=== PATIENT | female | born 1945 | race Caucasian/White ===

== ENCOUNTER 2018-05-16 10:51 | Day surgery (SDC) | payer OTHER, MEDICARE, SELFPAY ==
--- NOTE | 2018-05-16 | PATH_ITS ---
[facility] Accession Number: [id number] . 01 Material submitted: . PART A: DUODENUM BX PART B: ANTRUM BX PART C: GE JUNCTION BX PART D: COLON POLYP BX AT 50 CM PART E: COLON POLYP AT 25 CM . 02 Diagnosis: A. Duodenum, Biopsy: Fragment of gastric oxyntic-type mucosa, consistent with gastric heterotopia. Negative for intraepithelial lymphocytosis. Negative for dysplasia and malignancy. . B. Stomach, Antrum, Biopsy: Superficial fragment of foveolar epithelium with no diagnostic abnormality. No evidence of Helicobacter on H/E stain. Negative for intestinal metaplasia. Negative for dysplasia or malignancy. . . C. Gastroesophageal Junction, Biopsy: Squamous and columnar epithelium with no diagnostic abnormality. Negative for intestinal metaplasia. Negative for dysplasia and malignancy. . D. Colon, Polyp at 50 cm, Biopsy: Tubular adenoma. . E. Colon, Polyp at 25 cm, Biopsy: Inflamed hyperplastic polyp. [facility]/05/17/2018 . 02 Electronically signed: . Yoanna Valdez MD, Pathologist NPI- [id number] . 01 Gross description: . Received five formalin-filled containers, each labeled with the patient's name: . A. In a container labeled duodenum, the specimen consists of a 0.2 cm portion of tissue, entirely submitted in cassette A. B. In a container labeled antrum, the specimen consists of two extremely tiny less than 0.1 cm portions of tissue, entirely submitted in cassette B. C. In a container labeled GE junction, the specimen consists of three fragments of tissue which range in size from less than 0.1 cm to 0.3 cm, entirely submitted in cassette C. D. In a container labeled colon polyp at 50 cm, the specimen consists of a 0.3 cm portion of tissue, entirely submitted in cassette D. E. In a container labeled colon polyp at 25 cm, the specimen consists of a 0.3 cm portion of tissue, entirely submitted in cassette E. ([id number]) /FRR . 02 Pathologist provided ICD-10: D12.6 . 02 CPT . 516220, [id number], 139265, [id number], [id number] Performed at: 01 [facility] [address] [address], [place], [place] [id number] MD Ender Vazquez MD Phone: [phone] Performed at: 02 [facility] [address] [place] [id number] MD Vinicius Greenfield MD Phone: [phone]
[2018-05-16 11:13] VITALS: BP 148/83; PULSE 70; RESP 16; TEMP 36.4; O2SAT 97
[2018-05-16] MEDS: SODIUM CHLORIDE 0.9% 1,000 ML 200 ML IV (11:20)
[2018-05-16] MEDS: TETRACAINE/BENZOCAINE/BUTAMBEN (CETACAINE) BOTTLE 1 SPRAY TOP (12:09)
[2018-05-16] MEDS: MIDAZOLAM 5 MG/5 ML VIAL IV (12:10)
[2018-05-16] MEDS: fentaNYL 250 MCG/5 ML INJ IV (12:10)
[2018-05-16] MEDS: LIDOCAINE 4% SOLN 50 ML 20 ML TOP (12:11)
--- NOTE | 2018-05-16 12:15 | PM.HP.1 ---
History of Present Illness Date Patient Seen: 05/16/18 Time Patient Seen: 12:16 Chief complaint: [id number] Narrative: Lo is a pleasant 72-year-old lady who is here for her 1st screening colonoscopy. Additionally she has significant noncardiac chest pain for many years has never had an EGD. Patient History Surgical History History of angioplasty History of tonsillectomy Family & Social History Family History: Reviewed 05/16/18 by Lauren Babin MD Social History: household members spouse Meds Home Medications Medication Instructions Recorded Confirmed Type amlodipine [Norvasc] 10 mg PO QDAY #30 tab 06/11/16 05/16/18 History benazepril 20 mg PO BID #0 08/16/16 05/16/18 History levothyroxine 0.05 mg PO QAM #90 tab 12/05/17 05/16/18 Rx Allergies Allergy/AdvReac Type Severity Reaction Status Date / Time No Known Drug Allergies Allergy Verified 05/16/18 11:02 Review of Systems Review of Systems All systems reviewed & are unremarkable except as noted in HPI and below Exam Vital Signs (past 8 hours): - 05/16/18 11:13 Temperature 97.6 F Pulse Rate 70 Respiratory Rate 16 Blood Pressure 148/83 H Pulse Oximetry 97 Oxygen Delivery Method Room Air Narrative Exam Narrative: Very pleasant, well-nourished, and well-developed lady in no distress HEENT: Normocephalic and atraumatic, pupils equal round reactive to light accommodation with anicteric sclera Lungs: Clear to auscultation bilaterally Heart: Regular rate and rhythm without murmur Abdomen: Soft, nontender, active bowel sounds Extremities: Warm and well perfused without edema Assessment & Plan Plan: Assessment/Plan Narrative: Very pleasant and generally healthy lady with no prior colonoscopy. Additionally she has suffered from noncardiac chest pain for number of years. We discussed the risks and benefits of EGD and colonoscopy and the patient expressed desire to complete the procedures
--- NOTE | 2018-05-16 13:02 | P.OP_ITS ---
Operative Date/Time/Diagnoses Date of procedure: 05/16/18 Time of procedure: 12:57 Pre-op diagnosis: Screening colonoscopy Noncardiac chest pain Post-op diagnosis: same Procedure & Clinicians Procedure: Esophagogastroduodenoscopy with biopsies and colonoscopy with polypectomy and biopsies Same procedure as scheduled: Yes Indications: No prior colonoscopy Surgeon: Lauren Babin Anesthesia Type: Sedation (Versed 10 mg; fentanyl 300 mcg) Operative Notes Findings: 1. Normal duodenum 2. Normal antrum without evidence of gastritis 3. GE junction at 39 cm from the incisors with a 3 cm sliding hiatal hernia. 4. 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 Normal posterior oropharynx and proximal esophagus 6. Excellent prep 7. Semi pedunculated, 3 mm polyp at 50 cm from the anal verge. Removed with cold forceps and submitted for pathology. 8. Short segment of colitis approximately 3 cm long at 25 cm from the anal verge. 9. Significant diverticulosis from the junction of the sigmoid colon and rectum to approximately 50 cm from the anal verge. Multiple large and small tics and false passages. 10. No AV malformations 11. Grade 1-2 internal hemorrhoids Closure Type: not applicable Specimen(s): other (Biopsy of the duodenum, antrum, GE junction, polyp at 50 cm , and colitis at 25 cm) Estimated Blood Loss (mL): 1 Procedure in detail: After obtaining informed consent, the patient was brought to the GI suite and placed in the left lateral decubitus position on the examination table. After placement of appropriate monitors, the patient was given incremental doses of Versed and Fentanyl until an appropriate level of sedation was achieved. A time out was held per SCOAP protocol. We began with EGD. A bite block was gently placed between the patient's teeth. The endoscope was lubricated and then passed into the patient's posterior oropharynx. The esophagus was cannulated under direct vision and the scope was passed to the second portion of the duodenum without difficulty. The scope was then withdrawn with careful examination of all areas of the upper GI tract and mucosa. In the stomach, the instrument was retroflexed and the GE junction examined. The scope was straightened and the procedure continued with examination of the remainder of the upper GI tract. Findings are noted above. Air was aspirated from the stomach and the endoscope gently removed from the esophagus. The examination table was turned and we continued with the colonoscopy. A digital rectal examination was performed and did not reveal any masses or obstructing lesions. The colonoscope was gently passed into the patient's anus and the entire colon navigated to the level of the cecum with minimal difficulty. Once in the cecum, the scope was withdrawn being sure to go before and beyond all mucosal folds and prominences and get an excellent examination. The findings are noted above. At the level of the rectal vault, the scope was retroflexed and the internal anal canal was examined. The scope was straightened and air aspirated from the colon. The instrument was removed from the patient's body and the procedure was concluded. The patient was allowed to awaken from sedation without difficulty and taken to the post-anesthesia care unit in good condition. Total sedation time was 38 min Total colonoscopy withdrawal time was 11 min Complications: none Condition: stable Disposition: PACU Plan for aftercare: 1. Discharge to home 2. We will contact you with pathology results and recommendations 3. Plan for next colonoscopy in 5 years or as clinically indicated
[2018-05-16 13:03] VITALS: BP 117/75; PULSE 71; RESP 14; TEMP 36.3; O2SAT 97
[2018-05-16 13:08] VITALS: BP 118/71; PULSE 64; RESP 15; O2SAT 96
[2018-05-16 13:12] VITALS: BP 113/69; PULSE 62; RESP 15; O2SAT 96
[2018-05-16 13:19] VITALS: BP 118/71; PULSE 69; RESP 16; TEMP 36.4; O2SAT 97
[2018-05-16 13:30] VITALS: BP 130/76; PULSE 64; RESP 16; TEMP 36.7; O2SAT 95
== END 2018-05-16 14:09 | disposition home or self-care (01) ==
PROVIDERS: Family Provider Psychiatry & Neurology Neurology; PCP Psychiatry & Neurology Neurology; Visit Provider Surgery
PROC: 0DJD8ZZ Inspection of Lower Intestinal Tract, Via Natural or Artificial Opening Endoscopic (ICD-10-PCS; CPT 45378; 2018-05-16 12:00)
PROC: 0DJ08ZZ Inspection of Upper Intestinal Tract, Via Natural or Artificial Opening Endoscopic (ICD-10-PCS; CPT 45380; 2018-05-16 12:00)
DX: Z12.11 Encounter for screening for malignant neoplasm of colon (principal); K22.4 Dyskinesia of esophagus; K57.30 Diverticulosis of large intestine without perforation or abscess without bleeding; K64.1 Second degree hemorrhoids; K52.9 Noninfective gastroenteritis and colitis, unspecified; K44.9 Diaphragmatic hernia without obstruction or gangrene; D12.5 Benign neoplasm of sigmoid colon
CPT/HCPCS: 45380; 43239; 99152; 99153; J2250; J3010

== ENCOUNTER → 2018-12-15 11:34 | Outpatient (CLI) | payer OTHER, SELFPAY ==
--- NOTE | 2018-12-15 11:36 | DI.RAD.S_ITS ---
PROCEDURE: XR SACRUM COCCYX MIN 2V INDICATIONS: weight bearing TECHNIQUE: 3 views of the sacrum and coccyx acquired. COMPARISON: None. FINDINGS: Bones: No fractures or dislocations. No suspicious bony lesions. There is moderate sacroiliac joint degeneration bilaterally and mild hip joint degeneration bilaterally. Soft tissues: Visualized bowel gas pattern is normal. No suspicious soft tissue densities. IMPRESSION: 1. No fracture. 2. 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 Dictated by: Jenny Hurtado M.D. on 12/15/2018 at 16:05 Approved by: Jenny Hurtado M.D. on 12/15/2018 at 16:06
--- NOTE | 2018-12-15 11:36 | DI.RAD.S_ITS ---
PROCEDURE: XR LUMBAR SPINE MIN 4V INDICATIONS: weight bearing lumbar spine TECHNIQUE: 5 views of the lumbar spine were acquired. COMPARISON: None. FINDINGS: Bones: 5 [id number] vertebrae are present. There is grade 1 retrolisthesis of L1 on L2 and L2 on L3. No vertebral body compression fractures. No suspicious bony lesions. There is multilevel degenerative disc disease, moderate at L1-L2, L3-L4 and L5-S1, mild at L2-L3 and L4-L5. There is moderate to severe facet arthropathy at L4-L5. Soft tissues: Overlying bowel gas pattern is normal. Extensive aortic and iliac calcifications. Oblique images: No pars defects. IMPRESSION: Degenerative disc and facet disease as described. Dictated by: Jenny Hurtado M.D. on 12/15/2018 at 16:02 Approved by: Jenny Hurtado M.D. on 12/15/2018 at 16:05
== END ==
PROVIDERS: PCP Family Medicine; Visit Provider Family Medicine
DX: M54.5 Low back pain (principal); M41.9 Scoliosis, unspecified; M51.36 Other intervertebral disc degeneration, lumbar region; M51.37 Other intervertebral disc degeneration, lumbosacral region; M47.816 Spondylosis without myelopathy or radiculopathy, lumbar region; M16.0 Bilateral primary osteoarthritis of hip; M47.898 Other spondylosis, sacral and sacrococcygeal region; Z91.81 History of falling
CPT/HCPCS: 72110; 72220

== ENCOUNTER → 2019-03-29 09:42 | Outpatient (CLI) | payer OTHER, SELFPAY ==
[2019-03-29 11:09] LABS: Alanine Aminotransferase 23 IU/L (9-52); Albumin 4.6 g/dL (3.5-5.0); Albumin Globulin Ratio 1.6 (1.0-2.8); Alkaline Phosphatase 88 U/L (38-126); Aspartate Aminotransferase 23 IU/L (14-36); Bilirubin Total 0.5 mg/dL (0.2-1.3); Blood Urea Nitrogen 16 mg/dL (7-17); Calcium 9.8 mg/dL (8.4-10.2); Carbon Dioxide 27 mmol/L (22-32); Chloride 102 mmol/L (98-107); Estimated Glomerular Filt Rate > 60.0 mL/min (>60); Globulin 2.8 g/dL (1.7-4.1); Glucose 102 mg/dL (80-110); HEMOLYSIS < 15 (0-50); Potassium 4.4 mmol/L (3.4-5.1); Sodium 138 mmol/L (137-145); Total Protein 7.4 g/dL (6.3-8.2)
[2019-03-29 11:12] LABS: High Sensitivity CRP - Cardiac 2.9 mg/L (1.0-3.0)
[2019-04-02 08:50] LABS: Lipoprofile NMR SEE SEPERATE REPORT
== END ==
PROVIDERS: PCP Family Medicine; Visit Provider Family Medicine
DX: I25.10 Atherosclerotic heart disease of native coronary artery without angina pectoris (principal); E03.9 Hypothyroidism, unspecified; E78.5 Hyperlipidemia, unspecified; I10 Essential (primary) hypertension
CPT/HCPCS: 36415; 80053; 83704; 84443; 86140

== ENCOUNTER → 2019-10-02 11:11 | Outpatient (CLI) | payer OTHER, SELFPAY ==
[2019-10-02 12:03] LABS: Hemoglobin A1C% w Est Avg Glu 5.1 % (4.0-6.0)
[2019-10-02 12:19] LABS: BUN Creatinine Ratio 26.7 (6-22); Blood Urea Nitrogen 16 mg/dL (7-17); Calcium 9.9 mg/dL (8.4-10.2); Carbon Dioxide 29 mmol/L (22-32); Chloride 99 mmol/L (98-107); Cholesterol 311 mg/dL (140-199); Estimated Glomerular Filt Rate > 60.0 mL/min (>60); Glucose 101 mg/dL (80-110); HDL Cholesterol 57 mg/dL (40-60); HEMOLYSIS < 15 (0-50); LDL Cholesterol Calculated 216 mg/dL (<100); Potassium 3.9 mmol/L (3.4-5.1); Sodium 138 mmol/L (137-145); Triglycerides 190 mg/dL (35-150)
[2019-10-02 12:24] LABS: High Sensitivity CRP - Cardiac 3.4 mg/L (1.0-3.0)
== END ==
PROVIDERS: PCP Family Medicine; Visit Provider Family Medicine
DX: Z13.1 Encounter for screening for diabetes mellitus (principal); E78.5 Hyperlipidemia, unspecified; I10 Essential (primary) hypertension; E03.9 Hypothyroidism, unspecified; R73.03 Prediabetes
CPT/HCPCS: 36415; 80048; 80061; 83036; 86140

== ENCOUNTER → 2020-10-29 12:09 | Outpatient (CLI) | payer MEDICARE, OTHER, SELFPAY ==
[2020-10-29 13:25] LABS: Alanine Aminotransferase 26 IU/L (<35); Albumin 4.5 g/dL (3.5-5.0); Albumin Globulin Ratio 1.6 (1.0-2.8); Alkaline Phosphatase 89 U/L (38-126); Aspartate Aminotransferase 29 IU/L (14-36); BUN Creatinine Ratio 26.9 (6-22); Bilirubin Total 0.5 mg/dL (0.2-1.3); Blood Urea Nitrogen 14 mg/dL (7-17); Calcium 9.8 mg/dL (8.4-10.2); Carbon Dioxide 30 mmol/L (22-32); Chloride 101 mmol/L (98-107); Cholesterol 211 mg/dL (140-199); Estimated Glomerular Filt Rate > 60.0 mL/min (>60); Globulin 2.8 g/dL (1.7-4.1); Glucose 95 mg/dL (80-110); HDL Cholesterol 76 mg/dL (40-60); HEMOLYSIS < 15 (0-50); LDL Cholesterol Calculated 118 mg/dL (<100); Potassium 3.8 mmol/L (3.4-5.1); Sodium 136 mmol/L (137-145); Total Protein 7.3 g/dL (6.3-8.2); Triglycerides 86 mg/dL (35-150)
[2020-10-29 13:29] LABS: High Sensitivity CRP - Cardiac 1.4 mg/L (1.0-3.0)
== END ==
PROVIDERS: PCP Family Medicine; Referring Provider Family Medicine; Visit Provider Family Medicine
DX: E03.9 Hypothyroidism, unspecified (principal); E78.5 Hyperlipidemia, unspecified; I10 Essential (primary) hypertension; I25.10 Atherosclerotic heart disease of native coronary artery without angina pectoris; R73.03 Prediabetes
CPT/HCPCS: 36415; 80053; 80061; 86140

== ENCOUNTER → 2020-11-03 11:41 | Outpatient (CLI) | payer MEDICARE, OTHER, SELFPAY ==
[2020-11-03 12:30] LABS: TSH w/ Reflex to FT4 3.48 uIU/mL (0.47-4.68)
== END ==
PROVIDERS: PCP Family Medicine; Visit Provider Family Medicine
DX: E03.9 Hypothyroidism, unspecified (principal)
CPT/HCPCS: 84443

== ENCOUNTER 2024-06-15 12:30 | Emergency (ER) | payer MEDICARE, OTHER, SELFPAY ==
[2024-06-15] VITALS (11 sets, daily range): BP systolic 152–180; BP diastolic 68–81; PULSE 64–78; RESP 16; TEMP 36.9; O2SAT 95–99; BMI 23.6
[2024-06-15 13:33] LABS: Appearance Urine UA CLEAR; Bilirubin Urine UA NEGATIVE (NEGATIVE); Color Urine UA YELLOW; Glucose Urine UA NEGATIVE (Negative); Ketones Urine UA NEGATIVE (NEGATIVE); Leukocyte Esterase Urine UA 1+ (NEGATIVE); Nitrite Urine UA NEGATIVE (Negative); Occult Blood Urine UA 1+ (Negative); Protein Urine UA NEGATIVE (Negative); Urobilinogen Urine UA 0.2 E.U./dL (0.2)
[2024-06-15 13:34] LABS: pH Urine UA 5.5 (4.5-8.0)
[2024-06-15 13:46] LABS: Bacteria Urine Occasional (0-1); Culture Indicated Urine Specimen Cultured; RBC Urine 0-1/HPF (0-5/HPF); Squamous Epithelial Cell Urine 1-5 /HPF (0-5/HPF); Urine Volume 10mL (spun); WBC Urine 1-5/HPF (0-5/HPF)
--- NOTE | 2024-06-15 15:28 | ED.FEMALEGU ---
HPI - Female Genitourinary General Chief complaint: Urogenital-Female Stated complaint: rt side pelvic pain, passaree Time Seen by Provider: 06/15/24 15:03 History of Present Illness HPI Narrative: Patient has appointment with local supervisory forester June 26. Patient uses a pessary. She has been inconsistent about using it. This past week, 2 days ago had sudden onset right side lower quadrant pain. Has improved. No pain now. No urinary complaints. Patient was very pale and diaphoretic 2 days ago when this pain hit. No prior history of kidney stones. Patient still has her appendix. Patient in no distress at this time. No hematuria urinary urgency or frequency. Related Data Previous Rx's Medication Instructions Recorded estradiol 10 mcg vaginal tablet 10 mcg vaginal 3XW #12 tabs 11/09/23 (Vagifem) oxyquinoline 0.025 %-sodium lauryl See Rx Instructions vaginal 11/09/23 sulfate 0.01 % vaginal gel .weekly #113.4 grams (Trimo-Guillory Jelly) Allergies Allergy/AdvReac Type Severity Reaction Status Date / Time No Known Drug Allergies Allergy Verified 11/09/23 11:28 Review of Systems Review of Systems Narrative: GENERAL: negative chills, fatigue, malaise, fever, sweats. HEENT: negative sinus pain, ear pain, sore throat RESPIRATORY: negative dyspnea, cough CARDIOVASCULAR: negative chest pain, palpitations GASTROINTESTINAL: negative nausea, vomiting, positive abdominal pain : negative dysuria, frequency, hematuria MUSCULOSKELETAL: negative muscle or bony pain SKIN: negative rash, skin lesions NEUROLOGIC: negative weakness, numbness Patient History Medical History (Updated 06/15/24 @ 17:36 by Fuentes Rashid MD) Postmenopausal atrophic vaginitis Uterovaginal prolapse, incomplete Prediabetes Acid reflux Tubular adenoma of colon (~04/2018) Grade I internal hemorrhoids Diverticulosis Prolapsed uterus Digestive problems Arm injury (2011) CAD (coronary artery disease) Hypertension Hypothyroidism Hemorrhoids Tinnitus Measles Chicken pox Rosacea Surgical History Anesthesia History of gynecologic surgery (08/16/16) History of angioplasty (2015) History of tonsillectomy (1960) Family History Brother No problems noted. Father Brain aneurysm Mother No problems noted. Sister No problems noted. alcohol intake frequency: holidays/special occasions only Substance Use Type: does not use Exam Narrative Exam Narrative: GENERAL: in no distress, not toxic not dyspneic HEAD: Normocephalic. EYES: Pupils equal round ENT: Mucous membranes moist. NECK: Trachea midline. CARDIOVASCULAR: Regular rate and rhythm RESPIRATORY: Clear to auscultation. Breath sounds equal bilaterally. No wheezes, rales, or rhonchi. GASTROINTESTINAL: Abdomen soft, non-tender, no peritoneal signs, bowel sounds are present. No rebound no guarding. No CVA tenderness EXTREMITIES: No gross deformities. BACK: No flank tenderness. NEURO: AOx4. SKIN: Warm and dry PSYCH: Not anxious, is cooperative Initial Vital Signs Initial Vital Signs: Vital Signs Temperature 98.4 F 06/15/24 12:50 Pulse Rate 78 06/15/24 12:50 Respiratory Rate 16 06/15/24 12:50 Blood Pressure 173/81 H 06/15/24 12:50 Pulse Oximetry 96 06/15/24 12:50 Oxygen Delivery Method Room Air 06/15/24 12:50 Course Orders Ordered: Discontinued Medications Sodium Chloride (Normal Saline 0.9%) 500 mls @ 1,000 mls/hr IV BOLUS ONE Stop: 06/15/24 15:56 Last Infusion: 06/15/24 16:50 Dose: Infused Documented By: Admin: 06/15/24 16:06 Dose: 1,000 mls/hr Documented By: KANNAN Vital Signs Vital signs: Vital Signs - 8 hr 06/15/24 12:50 06/15/24 14:38 06/15/24 14:39 Temperature 98.4 F Pulse Rate 78 77 Respiratory Rate 16 Blood Pressure 173/81 H 180/79 H Pulse Oximetry 96 97 Oxygen Delivery Method Room Air 06/15/24 14:39 06/15/24 15:00 06/15/24 15:00 Temperature Pulse Rate 74 75 Respiratory Rate Blood Pressure 153/68 H Pulse Oximetry 95 95 Oxygen Delivery Method 06/15/24 15:30 06/15/24 15:30 06/15/24 16:00 Temperature Pulse Rate 70 67 Respiratory Rate Blood Pressure 159/72 H Pulse Oximetry 96 96 Oxygen Delivery Method 06/15/24 16:00 06/15/24 16:30 06/15/24 16:31 Temperature Pulse Rate 67 Respiratory Rate Blood Pressure 164/79 H 166/71 H Pulse Oximetry 97 Oxygen Delivery Method 06/15/24 16:31 Temperature Pulse Rate 64 Respiratory Rate Blood Pressure Pulse Oximetry 97 Oxygen Delivery Method MDM - Female Genitourinary Lab Data 06/15/24 15:52 06/15/24 15:52 Labs: Lab Results 06/15/24 06/15/24 Range/Units 12:57 15:52 WBC 8.2 (4.5-11.0) X10^3/uL RBC 4.28 (4.0-5.2) X10^6/uL Hgb 13.4 (12.0-16.0) g/dL Hct 39.0 (36-46) % MCV 91.0 (80-100) fL MCH 31.3 (26-34) PG MCHC 34.3 (30-36) % RDW 12.3 (11.6-14.8) % Plt Count 274 (150-400) X10^3/uL Neut % (Auto) 59.8 (50-75) % Lymph % (Auto) 30.9 (25-40) % [place] % (Auto) 7.6 (3-14) % Eos % (Auto) 1.3 L (2-4) % Baso % (Auto) 0.4 (0-2) % Neut # (Auto) 4900 (6435-9472) /uL Lymph # (Auto) 2500 (7810-5314) /uL [place] # (Auto) 600 (0-900) /uL Eos # (Auto) 100 (0-450) /uL Baso # (Auto) 0 (0-100) /uL Sodium 139 (137-145) mmol/L Potassium 3.8 (3.4-5.1) mmol/L Chloride 104 (98-107) mmol/L Carbon Dioxide 26 (22-32) mmol/L BUN 15 (7-17) mg/dL Creatinine 0.52 (0.52-1.04) mg/dL Estimated GFR > 60 (>60) mL/min BUN/Creatinine Ratio 28.8 H (6-22) Glucose 102 (80-110) mg/dL Calcium 9.7 (8.4-10.2) mg/dL Total Bilirubin 0.5 (0.2-1.3) mg/dL AST 28 (14-36) IU/L ALT 20 (<35) IU/L Alkaline Phosphatase 72 (38-126) U/L Total Protein 7.7 (6.3-8.2) g/dL Albumin 4.4 (3.5-5.0) g/dL Globulin 3.3 (1.7-4.1) g/dL Albumin/Globulin Ratio 1.3 (1.0-2.8) Urine Color Yellow Urine Appearance Clear Urine pH 5.5 (4.5-8.0) Ur Specific [place] 1.020 (1.000-1.035) Urine Protein Negative (Negative) Urine Glucose (UA) Negative (Negative) g/dL Urine Ketones Negative (NEGATIVE) Urine Occult Blood 1+ H (Negative) Urine Nitrate Negative (Negative) Urine Bilirubin Negative (NEGATIVE) Urine Urobilinogen 0.2 (0.2) E.U./dL Ur Leukocyte Esterase 1+ H (NEGATIVE) Urine RBC 0-1/hpf (0-5/HPF) Urine WBC 1-5/hpf (0-5/HPF) Ur Squamous Epith Cells 1-5 /hpf (0-5/HPF) Urine Bacteria Occasional (0-1) (None) Ur Culture Indicated? Specimen cultured Vol Urine Centrifuged 10ml (spun) Imaging Data CT scan - abdomen/pelvis: Radiologist's Impression: [place] [address] CT Scan Report Signed Patient: Lo Sommer MR#: [id number] : 1945 Acct:[id number] Age/Sex: 78 / F Date of Service: 06/15/24 Loc: ED Accession Number: [id number] Procedure: CT abdomen pelvis w con Ordering Provider: Fuentes Rashid MD PROCEDURE: CT ABDOMEN PELVIS W CON INDICATIONS: IV contrast only/right side pain TECHNIQUE: After the administration of intravenous contrast, axial sections acquired from the lung bases to the pubic symphysis. Coronal and sagittal reformats were performed. For radiation dose reduction, the following was used: automated exposure control, adjustment of mA and/or kV according to patient size. COMPARISON: None. FINDINGS: Image quality: Diagnostic. Lower Chest: No significant findings. ABDOMEN: Liver: No solid mass. Hepatic cysts. Additional subcentimeter hypoattenuating lesions, too small to characterize by CT. Gallbladder: No radiopaque gallstones or wall thickening. Biliary ducts: No biliary dilation. Pancreas: No ductal dilation. Spleen: Size is within normal limits. Adrenal Glands: No adrenal nodules. Kidneys and Ureters: No hydronephrosis. No solid mass. No complex renal cystic lesion which requires follow up. Stomach and Bowel: Normal colonic caliber, without significant wall thickening. Fecal debris within the small bowel. Normal appendix. Colonic diverticulosis without evidence of diverticulitis. Peritoneum: No abnormal intraperitoneal fluid. No free air. Ventral Wall: No significant ventral hernia. Abdominal Nodes: No retroperitoneal or mesenteric adenopathy by size criteria. Vessels: Aorta and inferior vena cava are normal in size. PELVIS: Pelvic Organs: Pessary is present. Bladder: No bladder wall thickening, accounting for underdistention. Pelvic Nodes: No enlarged lymph nodes. Miscellaneous: No inguinal hernias are seen. Bones: No aggressive osseous abnormality. IMPRESSION: No significant, acute findings to explain the patient's right-sided pain. Normal appendix. No nephrolithiasis. Normal gallbladder. Large colonic stool load. Fecal debris within the small-bowel, usually indicating small intestinal bacterial overgrowth versus slow transit. Dictated by: Maxwell Caro M.D. on 06/15/2024 at 17:06 Approved by: Maxwell Caro M.D. on 06/15/2024 at 17:08 [facility] Narrative Medical decision making narrative: Patient has appointment with local supervisory forester June 26. Patient uses a pessary. She has been inconsistent about using it. This past week, 2 days ago had sudden onset right side lower quadrant pain. Has improved. No pain now. No urinary complaints. Patient was very pale and diaphoretic 2 days ago when this pain hit. No prior history of kidney stones. Patient still has her appendix. Patient in no distress at this time. No hematuria urinary urgency or frequency. After history and exam CBC CMP urinalysis CT abdomen pelvis normal saline [facility] Medical records reviewed: No recent visit for this complaint Differential considered: Includes but not limited to UTI pyelonephritis kidney stone appendicitis Lab Test results independently reviewed as above. Pertinent findings: Urinalysis 1+ blood 1+ leukocyte esterase negative nitrite WBC 8.2 hemoglobin 13.4 sodium 139 potassium 3.8 AST 28 ALT 20 Imaging studies independently reviewed: CT abdomen pelvis, large colonic stool burden Consultations: None indicated this time Treatments: Normal saline Re-evaluations: 5:30 p.m.. Updated patient results. At this time they are reassuring. It could be due to constipation. Patient states she has not had her usual bowel movements. And it could explain her right side pain given the colon ascending colon on that side. Return precautions reviewed. Nontoxic at discharge. They desire discharge home Discussion: Appropriate for discharge home exam is reassuring. Laboratory studies reassuring. Imaging reassuring. This could be slow transit constipation. Reviewed with patient to take yysr-hyk-hhoxhya laxatives to see for relief this weekend return precautions reviewed. They desire discharge home Diagnosis: Abdominal pain Discharge Plan Departure Patient Disposition: Home Clinical Impression: Abdominal pain Qualifiers: Abdominal location: right lower quadrant Qualified Code(s): R10.31 - Right lower quadrant pain Instructions: DI for Abdominal Pain-Adult, DI for Constipation Activity Restrictions/Additional Instructions: The abdominal pain could be caused by constipation. Please take [id number] laxative this weekend for relief. Return if worse if any questions or concerns. See family doctor next week for re-evaluation. No prescriptions are indicated at this time. Your blood work and imaging studies are otherwise reassuring. Prescriptions: No Action estradiol [Vagifem] 10 mcg tablet 10 mcg vaginal 3XW Qty: 12 12RF Trimo-Guillory Jelly 0.025-0.01 % gel See Rx Instructions vaginal .weekly Qty: 113.4 12RF Rx Instructions: Apply 1 applicator 4 grams vaginally WEEKLY Referrals: Jessica Lemos DO [Primary Care Provider] - Stand Alone Forms: Patient Portal/API
[2024-06-15 16:01] LABS: Add Manual Diff / Slide Review NO; Basophils Absolute Auto 0 /uL (0-100); Basophils Percent Auto 0.4 % (0-2); Eosinophils Absolute Auto 100 /uL (0-450); Eosinophils Percent Auto 1.3 % (2-4); Hemoglobin 13.4 g/dL (12.0-16.0); Lymphocytes Absolute Auto 2500 /uL (1100-4500); Lymphocytes Percent Auto 30.9 % (25-40); Mean Corpuscular HGB Conc 34.3 % (30-36); Mean Corpuscular Hemoglobin 31.3 PG (26-34); Monocytes Absolute Auto 600 /uL (0-900); Monocytes Percent Auto 7.6 % (3-14); Neutrophils Absolute Auto 4900 /uL (1500-7000); Neutrophils Percent Auto 59.8 % (50-75); Platelet Count 274 X10^3/uL (150-400); Red Blood Cell Count 4.28 X10^6/uL (4.0-5.2); Red Cell Distribution Width 12.3 % (11.6-14.8); White Blood Cell Count 8.2 X10^3/uL (4.5-11.0)
[2024-06-15] MEDS: SODIUM CHLORIDE 0.9% 500 ML 1000 ML IV (16:06)
[2024-06-15 16:14] LABS: Alanine Aminotransferase 20 IU/L (<35); Albumin 4.4 g/dL (3.5-5.0); Albumin Globulin Ratio 1.3 (1.0-2.8); Alkaline Phosphatase 72 U/L (38-126); Aspartate Aminotransferase 28 IU/L (14-36); BUN Creatinine Ratio 28.8 (6-22); Bilirubin Total 0.5 mg/dL (0.2-1.3); Blood Urea Nitrogen 15 mg/dL (7-17); Calcium 9.7 mg/dL (8.4-10.2); Carbon Dioxide 26 mmol/L (22-32); Chloride 104 mmol/L (98-107); Estimated Glomerular Filt Rate > 60 mL/min (>60); Globulin 3.3 g/dL (1.7-4.1); Glucose 102 mg/dL (80-110); HEMOLYSIS 35 (0-50); Potassium 3.8 mmol/L (3.4-5.1); Sodium 139 mmol/L (137-145); Total Protein 7.7 g/dL (6.3-8.2)
== END 2024-06-15 17:40 | disposition home or self-care (01) ==
PROVIDERS: Emergency Provider Emergency Medicine; PCP Family Medicine
DX: R10.31 Right lower quadrant pain (principal)
CPT/HCPCS: 36415; 74177; 80053; 81001; 85025; 87086; 96360; 99284; Q9967